=== PATIENT | male | born 1970 | race Caucasian/White ===

== ENCOUNTER → 2023-07-19 | Outpatient (CLI) | payer SELFPAY ==
[~2023-07-19] MED LIST: ALLO300 PO; DIVA125EC PO; DIVA250EC; DIVA250EC PO; HYDACE5 PO; LISHYD1012 PO; NAPR550 PO; OXYACE5T PO; RXNAPNA550 PO
== END ==
LOC: LAB 11:45 → LAB SHORT 11:45
DX: R30.0 Dysuria (principal)
CPT/HCPCS: 87077; 87086; 87186